=== PATIENT | male | born 1980 | race Two or more races ===

== ENCOUNTER 2020-01-30 14:11 | Inpatient (IN) | payer MEDICAID, OTHER ==
[~2020-01-30] VITALS: Ht 172.7 cm; Wt 65.1 kg
[2020-01-30] MEDS ORDERED: SODIUM CHLORIDE 0.9% 1,000 ML IV ONE ×2 (14:42)
[2020-01-30 15:08] LABS: Basophils # (auto) 0 10 ^3/uL (0-0.2); Basophils % (auto) 0.5 % (0.0-2.0); Eosinophils # (auto) 0 10 ^3/uL (0-0.8); Eosinophils % (auto) 0.7 % (0.0-7.0); Hematocrit 41.9 % (41.0-53.0); Monocytes # (auto) 0.7 10 ^3/uL (0-1.3); Monocytes % (auto) 11.9 % (0.0-12.0); White Blood Cell 6.2 10^3/uL (4.4-10.8)
[2020-01-30 15:09] LABS: Hemoglobin 13.5 g/dL (13.5-17.5); Lymphocytes % (auto) 15.6 % (10.0-50.0); Mean Corpuscular Hemoglobin 25.9 pg (28.0-32.0); Mean Corpuscular Hgb Conc. 32.3 g/dL (32.0-36.0); Mean Corpuscular Volume 80.4 fL (80.0-100.0); Neutrophils # (auto) 4.4 10 ^3/uL (1.6-8.6); Neutrophils % (auto) 71.3 % (37.0-80.0); Nucleated Red Blood Cells % 0.1 %; Platelet Count (auto) 138 10^3/uL (140-450); Red Blood Cells 5.21 10^6/uL (4.5-5.90)
[2020-01-30 15:13] LABS: Red Cell Distribution Width 20.7 % (11.8-14.3)
[2020-01-30 15:30] LABS: Albumin 3.9 g/dL (3.4-5.0); Anion Gap 11 (5-15); Blood Urea Nitrogen 4 mg/dL (7-18); Calcium 9.4 mg/dL (8.5-10.1); Carbon Dioxide 26 mmol/L (21-32); Chloride 95 mmol/L (98-107); Glucose 319 mg/dL (74-106); Lipase 212 U/L (73-393); Potassium 3.2 mmol/L (3.5-5.1); Sodium 132 mmol/L (136-145)
[2020-01-30 15:36] LABS: Alanine Aminotransferase 53 U/L (16-61); Alkaline Phosphatase 159 U/L (45-117); Aspartate Aminotransferase 56 U/L (15-37); BUN/Creatinine Ratio 5.1; Bilirubin, Total 3.5 mg/dL (0.2-1.0); GFR African American 143 mL/min; GFR Non-African American 118 mL/min; Total Protein 8.5 g/dL (6.4-8.2)
[2020-01-30] MEDS ORDERED: PIPERACILLIN-TAZOB 3.375GM 100 ML IV ONE (16:00)
[2020-01-30] MEDS ORDERED: metroNIDAZOLE 500MG/100ML 100 ML IV ONE (16:00)
[2020-01-30 16:20] LABS: Urine Bacteria NONE SEEN /hpf (None Seen); Urine Blood Negative /uL (Negative); Urine Specific Gravity 1.048 (1.001-1.035); Urine WBC <1 /hpf (0 - 3)
[2020-01-30] MEDS ORDERED: IOHEXOL 300 MG/ML 100ML BOTTLE IJ ONE (16:47)
[2020-01-30] MEDS ORDERED: MORPHINE SULF INJ 2 MG/ML SYRINGE 1ML IV PRN (20:15)
[2020-01-30] MEDS ORDERED: NITROGLYCERIN 0.4 MG SL TAB SL PRN (20:15)
[2020-01-30 21:16] VITALS: BP 132/96
--- NOTE | 2020-01-30 21:16 | NUR ---
Telemetry admit from ER FRANKADIEL admitted to Telemetry unit after SBAR received. Patient oriented to José Antonio lindquist RN, unit, room, bed, and unit policies regarding patient care and visiting hours. Patient now on continuous telemetry monitoring, tele box # 35 and telemetry reading on arrival to unit is NSR. Patient placed on bedside oxygen, weighed by bedscale and encouraged to call if they need something. All questions and concerns addressed, patient verbalized understanding.
[2020-01-31] MEDS: MORPHINE SULF INJ 2 MG/ML SYRINGE 1ML IV PRN ×2 (00:55→20:59)
[2020-01-31 05:00] VITALS: BP 126/81
[2020-01-31 07:20] LABS: Basophils # (auto) 0 10 ^3/uL (0-0.2); Hemoglobin 11.9 g/dL (13.5-17.5); INR 1.21 (0.9-1.15); Lymphocytes # (auto) 1.5 10 ^3/uL (0.4-5.4); Lymphocytes % (auto) 28.1 % (10.0-50.0); Monocytes # (auto) 0.8 10 ^3/uL (0-1.3); Neutrophils # (auto) 2.9 10 ^3/uL (1.6-8.6); Nucleated Red Blood Cells % 0.1 %; Partial Thromboplastin Time 27.9 sec (23.64-32.05)
[2020-01-31 07:22] LABS: Albumin 3.3 g/dL (3.4-5.0); Basophils % (auto) 0.4 % (0.0-2.0); Calcium 8.5 mg/dL (8.5-10.1); Eosinophils # (auto) 0.1 10 ^3/uL (0-0.8); Eosinophils % (auto) 2.8 % (0.0-7.0); Magnesium 1.7 mg/dL (1.6-2.6); Mean Corpuscular Hemoglobin 25.5 pg (28.0-32.0); Mean Corpuscular Hgb Conc. 31.2 g/dL (32.0-36.0); Mean Corpuscular Volume 81.6 fL (80.0-100.0); Monocytes % (auto) 14.8 % (0.0-12.0); Neutrophils % (auto) 53.9 % (37.0-80.0); Platelet Count (auto) 107 10^3/uL (140-450); Red Blood Cells 4.66 10^6/uL (4.5-5.90); White Blood Cell 5.3 10^3/uL (4.4-10.8)
[2020-01-31 07:26] LABS: BUN/Creatinine Ratio 6.2; Bilirubin, Total 2.5 mg/dL (0.2-1.0); Total Protein 7.2 g/dL (6.4-8.2)
[2020-01-31 07:35] LABS: Red Cell Distribution Width 20.7 % (11.8-14.3)
--- NOTE | 2020-01-31 08:00 | NUR ---
RECEIVED PATIENT ALERT AND ORIENTED X4, NOT IN DISTRESS, CLEAR LUNG SOUNDS IN BILATERAL UPPER AND LOWER LUNG LOBES, RR=18, SAT 97%, DEEP BREATHING AND COUGHING ENCOURAGED, DEMONSTRATED AND VERBALIZED WELL, DENIED SOB AND CHEST PAIN AT THIS MOMENT, SR R=78 ON TELE MONITOR, ABDOMEN SOFT WITH ACTIVE BS, C/O MID UPPER ABDOMINAL QUADRANT PAIN L=12/09, LAST BM=01/27/20 REPORTED, SKIN INTACT WARM TO TOUCH, RADIAL AND PEDAL PULSES PALPABLE, CAP REFILL <3 SECONDS, RESTING ON BED, DENIED PAIN, HEAD OF BED ELEVATED, BED ON LOW POSITION, RAILS UP X2, CALL LIGHT ON REACH, WILL CONTINUE MONITORING.
--- NOTE | 2020-01-31 08:59 | NUR ---
NO HOME MEDICATION LIST PROVIDED, NOT TAKING ANY MEDICATION AT HOME REPORTED BY THE PATIENT, RESTING ON BED, KEEP NPO ORDERED, WILL CONTINUE MONITORING.
[2020-01-31 09:00] VITALS: BP 132/92
[2020-01-31] MEDS ORDERED: DEXTROSE (50%) 50ML SYRG IV PRN (11:30)
[2020-01-31] MEDS ORDERED: traMADol HCL 50 MG TAB PO PRN (11:30)
[2020-01-31] MEDS ORDERED: FAMOTIDINE (10MG/ML) 2ML VL IV ONE (11:30)
[2020-01-31] MEDS ORDERED: POTASSIUM CHL 20 Meq TABLET PO ONE (11:30)
[2020-01-31] MEDS: ACCU-CHEK COMFORT CURVE STRIP VI SCH ×2 (12:00→18:27)
[2020-01-31] MEDS: InsuLIN REG 1unit/0.01ml Soln (100units/ml) SC SCH ×2 (12:00→18:27)
[2020-01-31 13:00] VITALS: BP 126/90
[2020-01-31] MEDS: SODIUM CHLORIDE 0.9% 1,000 ML IV SCH (15:00)
[2020-01-31 17:00] VITALS: BP 135/92
--- NOTE | 2020-01-31 19:28 | NUR ---
TOLERATED CLEAR LIQUID DIET WELL, RESTING ON BED, NOT IN DISTRESS, REPORT WAS GIVEN TO THE DIE STAMPING PRESS OPERATOR RN.
--- NOTE | 2020-01-31 20:50 | NUR ---
pain c/o right upper abdominal quadrant pain, 8. will administer ordered medication.
--- NOTE | 2020-01-31 20:51 | NUR ---
22g place at left AC, one attempt, pt tolerated well.
[2020-01-31 22:00] VITALS: BP 139/95
[2020-02-01] MEDS: ACCU-CHEK COMFORT CURVE STRIP VI SCH ×3 (00:08→11:38)
[2020-02-01] MEDS: InsuLIN REG 1unit/0.01ml Soln (100units/ml) SC SCH ×3 (00:08→12:45)
[2020-02-01] MEDS: SODIUM CHLORIDE 0.9% 1,000 ML IV SCH ×3 (00:11→12:06)
[2020-02-01 05:00] VITALS: BP 145/89
[2020-02-01 06:35] LABS: Basophils # (auto) 0 10 ^3/uL (0-0.2); Basophils % (auto) 0.8 % (0.0-2.0); Eosinophils # (auto) 0.2 10 ^3/uL (0-0.8); Hemoglobin 12.3 g/dL (13.5-17.5); Lymphocytes # (auto) 1.7 10 ^3/uL (0.4-5.4); Mean Corpuscular Volume 81.4 fL (80.0-100.0); Monocytes # (auto) 0.9 10 ^3/uL (0-1.3); Nucleated Red Blood Cells % 0.1 %; White Blood Cell 5.4 10^3/uL (4.4-10.8)
[2020-02-01 06:37] LABS: Eosinophils % (auto) 3.8 % (0.0-7.0); Hematocrit 38.3 % (41.0-53.0); Lymphocytes % (auto) 31.3 % (10.0-50.0); Mean Corpuscular Hemoglobin 26.1 pg (28.0-32.0); Mean Corpuscular Hgb Conc. 32.1 g/dL (32.0-36.0); Monocytes % (auto) 16.9 % (0.0-12.0); Neutrophils # (auto) 2.5 10 ^3/uL (1.6-8.6); Neutrophils % (auto) 47.2 % (37.0-80.0); Platelet Count (auto) 102 10^3/uL (140-450); Red Cell Distribution Width 20.4 % (11.8-14.3)
--- NOTE | 2020-02-01 07:06 | NUR ---
closing note pt resting in left lateral position with eyes closed. no s/s of pain or discomfort. respirations even and nonlabored on room air. bed in low locked position, call light within reach.
[2020-02-01 07:07] LABS: Albumin 3.3 g/dL (3.4-5.0); BUN/Creatinine Ratio 5.6; Calcium 8.5 mg/dL (8.5-10.1)
[2020-02-01 07:10] LABS: Bilirubin, Total 1.8 mg/dL (0.2-1.0); Total Protein 7.6 g/dL (6.4-8.2)
[2020-02-01 07:40] LABS: Potassium 2.7 mmol/L (3.5-5.1)
--- NOTE | 2020-02-01 07:40 | NUR ---
RE: Critical lab result Received critical potassium result [id number]. Notified Geovani Bedolla.P.. Order received and read back to verify.
[2020-02-01] MEDS ORDERED: POTASSIUM CHL 20 Meq TABLET PO ONE ×2 (08:00→10:45)
--- NOTE | 2020-02-01 08:00 | NUR ---
Morning note patient resting in bed with even and unlabored respirations, no distress noted. Instructed patient on POC, fall precautions and to call for assistance as needed. Patient verbalized understanding. Fall precautions in place with call light within reach.
[2020-02-01 09:24] VITALS: BP 128/81
[2020-02-01] MEDS ORDERED: FAMOTIDINE (10MG/ML) 2ML VL IV SCH (10:00)
--- NOTE | 2020-02-01 10:33 | NUR ---
was at bedside - Dr. Rosado This RN was at bedside. MD to place orders.
[2020-02-01] MEDS ORDERED: metFORMIN HYDROCHLORIDE 500 MG TAB PO ONE (10:45)
[2020-02-01 12:44] VITALS: BP 138/86
[2020-02-01 14:29] LABS: Calcium 9.2 mg/dL (8.5-10.1); Potassium 3.6 mmol/L (3.5-5.1)
[2020-02-01 14:31] LABS: BUN/Creatinine Ratio 2.8
--- NOTE | 2020-02-01 16:17 | NUR ---
Patient tolerated full liquid diet. Patient denies N/V, or abdominal pain. Potassium level WNL. Dr. Rosado verbally notified. verbalized understanding.
[2020-02-01 16:27] VITALS: BP 144/86
--- NOTE | 2020-02-01 17:00 | NUR ---
Discharge Discharge education and paperwork provided to the patient per MD order. patient verbalized understanding. Diabetes education provided to the patient. Patient verbalized understanding. IV remove with aseptic technique, catheter intact. Dressing applied. patient tolerated well; no trauma to site. Telemonitor removed and returned to telemonitor tech. Patient reports having all personal belongings. Patient reports his private vehicle in the ER parking lot. Respirations even and unlabored, no distress noted.
--- NOTE | 2020-02-01 17:09 | NUR ---
Patient ambulated off unit with a steady gait Patient accompanied by staff member. Respirations even and unlabored, no distress noted. Patient reports having all personal belongings. Patient instructed to knot picker cloth prescriptions from [facility]. Patient verbalized understanding.
[2020-02-01] MEDS ORDERED: metFORMIN HYDROCHLORIDE 500 MG TAB PO SCH (18:00)
== END 2020-02-01 17:09 | disposition home or self-care (01) | DRG 282 ==
LOC: ER 14:11 → TELE 14:12 → TELE-CENTR 21:16
PROVIDERS: ADMIT Hospitalist; ATTEND Internal Medicine
DX: K85.20 Alcohol induced acute pancreatitis without necrosis or infection (principal); D68.4 Acquired coagulation factor deficiency; E44.0 Moderate protein-calorie malnutrition; K70.10 Alcoholic hepatitis without ascites; E11.65 Type 2 diabetes mellitus with hyperglycemia; K72.90 Hepatic failure, unspecified without coma; F10.239 Alcohol dependence with withdrawal, unspecified; E86.0 Dehydration; K52.9 Noninfective gastroenteritis and colitis, unspecified; K29.20 Alcoholic gastritis without bleeding; E87.6 Hypokalemia; F17.200 Nicotine dependence, unspecified, uncomplicated; K76.0 Fatty (change of) liver, not elsewhere classified; R81 Glycosuria; R82.4 Acetonuria; Z71.41 Alcohol abuse counseling and surveillance of alcoholic; K86.0 Alcohol-induced chronic pancreatitis
CPT/HCPCS: 36415; 71045; 74176; 74177; 76705; 80048; 80053; 81001; 82962; 83036; 83605; 83690; 83735; 84100; 84484; 85025; 85610; 85730; 87040; 87081; G0378; J1815; J2543; J3490

== ENCOUNTER 2020-02-24 09:26 | Inpatient (IN) | payer MEDICAID ==
[~2020-02-24] VITALS: Ht 172.7 cm; Wt 85.7 kg
[2020-02-24] MEDS ORDERED: SODIUM CHLORIDE 0.9% 1,000 ML IV ONE ×2 (10:40)
[2020-02-24] MEDS ORDERED: ONDANSETRON HCL 4 MG/2 ML VIAL IV ONE (10:45)
[2020-02-24] MEDS ORDERED: MORPHINE SULFATE 4 MG/ML SYR/VIAL IV ONE (10:45)
[2020-02-24 11:10] LABS: Urine Bacteria NONE SEEN /hpf (None Seen); Urine Blood Negative /uL (Negative); Urine Mucus FEW (None Seen); Urine Specific Gravity 1.028 (1.001-1.035); Urine WBC 3 /hpf (0 - 3)
[2020-02-24 11:22] LABS: Potassium 4.8 mmol/L (3.5-5.1)
[2020-02-24 11:24] LABS: Amphetamine Screen, Urine NEGATIVE (NEGATIVE); Barbiturate Scree,Urine NEGATIVE (NEGATIVE); Benzodiazephine Screen, Urine NEGATIVE (NEGATIVE); Cannabinoid Screen, Urine NEGATIVE (NEGATIVE); Cocaine Screen, Urine NEGATIVE (NEGATIVE); Opiate Scree,Urine NEGATIVE (NEGATIVE); Phencyclidine Screen, Urine NEGATIVE (NEGATIVE)
[2020-02-24 11:30] LABS: Albumin 4.1 g/dL (3.4-5.0); Bilirubin, Total 3.9 mg/dL (0.2-1.0); Calcium 9.9 mg/dL (8.5-10.1)
[2020-02-24 11:41] LABS: Eosinophils # (auto) 0 10 ^3/uL (0-0.8)
[2020-02-24 11:43] LABS: Basophils # (auto) 0 10 ^3/uL (0-0.2); Basophils % (auto) 0.2 % (0.0-2.0); Hemoglobin 15.4 g/dL (13.5-17.5); Lymphocytes # (auto) 0.6 10 ^3/uL (0.4-5.4); Lymphocytes % (auto) 5.5 % (10.0-50.0); Mean Corpuscular Hemoglobin 25.7 pg (28.0-32.0); Mean Corpuscular Volume 80.1 fL (80.0-100.0); Monocytes % (auto) 10.1 % (0.0-12.0); Neutrophils # (auto) 8.7 10 ^3/uL (1.6-8.6); Neutrophils % (auto) 84.2 % (37.0-80.0); Platelet Count (auto) 188 10^3/uL (140-450); Red Cell Distribution Width 19.4 % (11.8-14.3); White Blood Cell 10.3 10^3/uL (4.4-10.8)
[2020-02-24 11:56] LABS: INR 1.16 (0.9-1.15); Partial Thromboplastin Time 23.9 sec (23.64-32.05)
[2020-02-24] MEDS ORDERED: PIPERACILLIN-TAZOB 3.375GM 100 ML IV ONE (12:30)
[2020-02-24] MEDS ORDERED: PROMETHAZINE HCL 25 MG/ML 1ML IV ONE (13:30)
[2020-02-24] MEDS ORDERED: NITROGLYCERIN 0.4 MG SL TAB SL PRN (15:00)
[2020-02-24] MEDS ORDERED: cefTRIAXone 1GM/50ML D5W 50 ML IV ONE (15:00)
[2020-02-24] MEDS ORDERED: PROMETHAZINE HCL 25 MG/ML 1ML IV PRN (15:00)
[2020-02-24] MEDS ORDERED: MORPHINE SULF INJ 2 MG/ML SYRINGE 1ML IV PRN ×3 (15:00)
[2020-02-24] MEDS ORDERED: DEXTROSE (50%) 50ML SYRG IV PRN (15:00)
[2020-02-24 15:09] LABS: Lactic Acid w/Reflex 3.3 mmol/L (0.4-2.0)
[2020-02-24] MEDS: SODIUM CHLORIDE 0.9% 1,000 ML IV SCH ×2 (16:12→21:40)
--- NOTE | 2020-02-24 16:58 | NUR ---
MS admit from ER ADIEL MARIE admitted to tele/MS after SBAR received. Patient oriented to ALANA WHITLEY, RN primary RN, TELE unit, room 296, bed A, and unit policies regarding patient care and visiting hours. Patient weighed by bedscale and encouraged to call if they need something. All questions and concerns addressed, patient verbalized understanding.
[2020-02-24 17:11] VITALS: BP 150/100
[2020-02-24] MEDS ORDERED: METF-370 PO (17:26)
--- NOTE | 2020-02-24 17:29 | NUR ---
PAGE MADE TO DR. YUAN REGARDING BP. ORDER RECEIVED FOR CHANGE IN PAIN MANAGEMENT MEDICATION.
[2020-02-24] MEDS: ACCU-CHEK COMFORT CURVE STRIP VI SCH (17:46)
[2020-02-24] MEDS: InsuLIN REG 1unit/0.01ml Soln (100units/ml) SC SCH (17:57)
[2020-02-24] MEDS: HYDROmorphone HCL 2 MG/ML VL IV PRN ×2 (18:09→23:48)
--- NOTE | 2020-02-24 18:54 | NUR ---
CARE ENDORSED TO NOC RN.
--- NOTE | 2020-02-24 19:00 | NUR ---
Opening Shift Note Assumed care of patient, awake and alert; c/o no relief from pain med prev. received. States understands that pain med not due until 2200, but pain 01/09. Pt grimacing only s/sx of pain. Insructed on POC and to call for assist PRN and RN will continue to monitor for changes. Bed in low position with HOB in semi-Mayberry's. Nurse call light within pt's reach.
[2020-02-24 22:00] VITALS: BP 144/93
[2020-02-24] MEDS: FAMOTIDINE (10MG/ML) 2ML VL IV SCH (23:39)
[2020-02-24] MEDS: metroNIDAZOLE 500MG/100ML 100 ML IV SCH (23:50)
[2020-02-25] MEDS: ACCU-CHEK COMFORT CURVE STRIP VI SCH ×5 (00:13→23:29)
[2020-02-25] MEDS: InsuLIN REG 1unit/0.01ml Soln (100units/ml) SC SCH ×5 (00:15→23:28)
--- NOTE | 2020-02-25 01:10 | NUR ---
Paged hospitalist 2/2 patient's unrelieved pain and PIV order for 150ml/hr with bp now down to 140s systolic. Hospitalist called to cardiac assist before he could answer.
--- NOTE | 2020-02-25 02:18 | NUR ---
PIV leaking blood and IV fluid; dc'd. This RN attempted x2 to start PIV w/o success. KOKO Alvarez, started PIV with 20g to LFA. Pt negro. well. Will give hydromorphone as pain has not been relieved poss due to PIV leaking into tissue.
[2020-02-25] MEDS: HYDROmorphone HCL 2 MG/ML VL IV PRN ×6 (02:33→23:23)
--- NOTE | 2020-02-25 02:52 | NUR ---
Pt states "pain is going down."
[2020-02-25] MEDS: SODIUM CHLORIDE 0.9% 1,000 ML IV SCH ×3 (04:20→17:34)
[2020-02-25 05:00] VITALS: BP 142/92
[2020-02-25] MEDS: metroNIDAZOLE 500MG/100ML 100 ML IV SCH ×3 (06:22→21:06)
[2020-02-25 06:38] LABS: Basophils # (auto) 0 10 ^3/uL (0-0.2); Eosinophils # (auto) 0 10 ^3/uL (0-0.8); Eosinophils % (auto) 0.1 % (0.0-7.0); Hemoglobin 13.9 g/dL (13.5-17.5); Monocytes # (auto) 1.9 10 ^3/uL (0-1.3); Monocytes % (auto) 15.3 % (0.0-12.0); Nucleated Red Blood Cells % 0.1 %
[2020-02-25 06:42] LABS: Basophils % (auto) 0.3 % (0.0-2.0); Hematocrit 43.5 % (41.0-53.0); Lymphocytes # (auto) 1.1 10 ^3/uL (0.4-5.4); Lymphocytes % (auto) 8.7 % (10.0-50.0); Mean Corpuscular Hemoglobin 25.8 pg (28.0-32.0); Mean Corpuscular Volume 80.6 fL (80.0-100.0); Neutrophils # (auto) 9.6 10 ^3/uL (1.6-8.6); Neutrophils % (auto) 75.6 % (37.0-80.0); Platelet Count (auto) 149 10^3/uL (140-450); Red Blood Cells 5.39 10^6/uL (4.5-5.90); Red Cell Distribution Width 19.4 % (11.8-14.3); White Blood Cell 12.7 10^3/uL (4.4-10.8)
[2020-02-25 06:45] LABS: Potassium 3.6 mmol/L (3.5-5.1)
[2020-02-25 07:02] LABS: Albumin 3.3 g/dL (3.4-5.0); BUN/Creatinine Ratio 15.4; Bilirubin, Total 3.2 mg/dL (0.2-1.0); Total Protein 7.7 g/dL (6.4-8.2)
[2020-02-25 09:00] VITALS: BP 128/79
[2020-02-25] MEDS: FAMOTIDINE (10MG/ML) 2ML VL IV SCH ×2 (09:43→20:44)
[2020-02-25] MEDS: cefTRIAXone 1GM/50ML D5W 50 ML IV SCH (09:43)
[2020-02-25 13:00] VITALS: BP 121/78
[2020-02-25 17:00] VITALS: BP 141/82
[2020-02-25 22:00] VITALS: BP 131/82
[2020-02-26] MEDS: SODIUM CHLORIDE 0.9% 1,000 ML IV SCH ×3 (00:20→11:49)
[2020-02-26] MEDS: HYDROmorphone HCL 2 MG/ML VL IV PRN ×3 (03:18→11:49)
[2020-02-26] MEDS: metroNIDAZOLE 500MG/100ML 100 ML IV SCH ×2 (05:37→13:23)
[2020-02-26] MEDS: ACCU-CHEK COMFORT CURVE STRIP VI SCH ×2 (05:40→11:48)
[2020-02-26] MEDS: InsuLIN REG 1unit/0.01ml Soln (100units/ml) SC SCH ×2 (05:43→11:48)
[2020-02-26 06:20] VITALS: BP 135/76
[2020-02-26 07:10] LABS: Basophils # (auto) 0 10 ^3/uL (0-0.2); Monocytes # (auto) 1.2 10 ^3/uL (0-1.3); Monocytes % (auto) 10.1 % (0.0-12.0)
[2020-02-26 07:12] LABS: Basophils % (auto) 0.4 % (0.0-2.0); Eosinophils # (auto) 0 10 ^3/uL (0-0.8); Eosinophils % (auto) 0.4 % (0.0-7.0); Hematocrit 41.2 % (41.0-53.0); Lymphocytes # (auto) 1.5 10 ^3/uL (0.4-5.4); Lymphocytes % (auto) 12.5 % (10.0-50.0); Mean Corpuscular Hemoglobin 25.9 pg (28.0-32.0); Mean Corpuscular Hgb Conc. 31.7 g/dL (32.0-36.0); Mean Corpuscular Volume 81.8 fL (80.0-100.0); Neutrophils # (auto) 8.9 10 ^3/uL (1.6-8.6); Neutrophils % (auto) 76.6 % (37.0-80.0); Nucleated Red Blood Cells % 0.1 %; Platelet Count (auto) 137 10^3/uL (140-450); Red Blood Cells 5.03 10^6/uL (4.5-5.90); White Blood Cell 11.6 10^3/uL (4.4-10.8)
[2020-02-26 07:35] LABS: Potassium 3.5 mmol/L (3.5-5.1)
[2020-02-26 07:42] LABS: BUN/Creatinine Ratio 11.3; Bilirubin, Total 2.7 mg/dL (0.2-1.0); Calcium 8.8 mg/dL (8.5-10.1); Total Protein 7.5 g/dL (6.4-8.2)
--- NOTE | 2020-02-26 07:54 | NUR ---
Opening Shift Note Assumed care of patient, awake and alert. No S/S of distress/SOB or pain. Insructed on POC and to callfor assist PRN, will continue to monitor for changes Q1hr and PRN. PT reports the want to go home because he has to go to court tomorrow
--- NOTE | 2020-02-26 07:55 | NUR ---
nuc med called will be picking up patient for hidda scan
[2020-02-26 09:00] VITALS: BP 129/73
[2020-02-26] MEDS: cefTRIAXone 1GM/50ML D5W 50 ML IV SCH (09:00)
[2020-02-26] MEDS: FAMOTIDINE (10MG/ML) 2ML VL IV SCH (09:35)
--- NOTE | 2020-02-26 09:36 | NUR ---
pt back from nuc med
[2020-02-26 13:00] VITALS: BP 126/73
--- NOTE | 2020-02-26 15:35 | NUR ---
Nutrition Assessment Notes please see attached link for complete assessment [employer] needs BW 85k-5kcals (23-25 kcal/kgBW), Est Protein needs: 85-93 gms/day (1.0-1.1 gm/kgBW). Will continue to monitor and reassess prn. Addendum: 02/26/20 at [address] Amended: Links added.
--- NOTE | 2020-02-26 16:33 | NUR ---
pt discharged home ambulatory tele box off iv removed tele sent to [facility] center discharge instructions reviewed
[2020-02-26 17:10] LABS: Hepatitis A Ab IgM Negative
[2020-02-26 17:11] LABS: Hepatitis B Core IgM Negative; Hepatitis B Surface Antigen Negative (Negative)
[2020-02-26 17:12] LABS: Hepatitis C Antibody Negative (Negative)
== END 2020-02-26 16:30 | disposition home or self-care (01) | DRG 720 ==
LOC: ER 09:26 → TELE 09:27 → TELE-WESTW 16:57
PROVIDERS: ADMIT Internal Medicine; ATTEND Internal Medicine
DX: A41.9 Sepsis, unspecified organism (principal); K85.90 Acute pancreatitis without necrosis or infection, unspecified; E87.1 Hypo-osmolality and hyponatremia; D68.9 Coagulation defect, unspecified; K83.8 Other specified diseases of biliary tract; K70.9 Alcoholic liver disease, unspecified; E66.9 Obesity, unspecified; E11.9 Type 2 diabetes mellitus without complications; K29.70 Gastritis, unspecified, without bleeding; E86.0 Dehydration; K76.0 Fatty (change of) liver, not elsewhere classified; Z68.28 Body mass index [BMI] 28.0-28.9, adult; Z83.3 Family history of diabetes mellitus; Z79.84 Long term (current) use of oral hypoglycemic drugs
CPT/HCPCS: 36415; 71046; 74176; 76700; 76705; 78226; 80053; 80074; 80307; 81001; 82140; 82150; 82962; 83036; 83605; 83690; 84443; 84484; 85025; 85610; 85730; 87040; 87086; 96365; 96367; 96375; 99291; G0378; J0696; J1815; J2405; J2543; J3490

== ENCOUNTER 2021-06-03 23:02 | Emergency (ER) | payer MEDICAID, OTHER ==
[~2021-06-03] VITALS: Ht 172.7 cm; Wt 66.2 kg
[2021-06-03 23:02] VITALS: BP 125/96
[~2021-06-03 23:02] MED LIST: METF-370 PO
[2021-06-04] LABS: Basophils # (auto) 0.1 10 ^3/uL (0-0.2); Basophils % (auto) 2.2 % (0.0-2.0); Eosinophils # (auto) 0 10 ^3/uL (0-0.8); Eosinophils % (auto) 0.8 % (0.0-7.0); Hematocrit 44.5 % (41.0-53.0); Hemoglobin 14.8 g/dL (13.5-17.5); Lymphocytes # (auto) 1.6 10 ^3/uL (0.4-5.4); Lymphocytes % (auto) 42.6 % (10.0-50.0); Mean Corpuscular Hemoglobin 32.3 pg (28.0-32.0); Mean Corpuscular Hgb Conc. 33.2 g/dL (32.0-36.0); Mean Corpuscular Volume 97.3 fL (80.0-100.0); Monocytes # (auto) 0.4 10 ^3/uL (0-1.3); Neutrophils # (auto) 1.7 10 ^3/uL (1.6-8.6); Neutrophils % (auto) 44.4 % (37.0-80.0); Nucleated Red Blood Cells % 0.1 %; Red Blood Cells 4.57 10^6/uL (4.5-5.90); Red Cell Distribution Width 13.9 % (11.8-14.3); White Blood Cell 3.7 10^3/uL (4.4-10.8)
[2021-06-04 00:19] LABS: Potassium 3.9 mmol/L (3.5-5.1)
[2021-06-04 00:22] LABS: Albumin 3.9 g/dL (3.4-5.0); BUN/Creatinine Ratio 3.1; Calcium 8.8 mg/dL (8.5-10.1); Magnesium 2.3 mg/dL (1.6-2.6)
[2021-06-04 00:29] LABS: Total Protein 8.6 g/dL (6.4-8.2)
== END 2021-06-04 02:24 | disposition left against medical advice (07) ==
LOC: EDUNIT# 23:02 → ER 23:02
DX: R07.89 Other chest pain (principal); R20.2 Paresthesia of skin; Z53.21 Procedure and treatment not carried out due to patient leaving prior to being seen by health care provider
CPT/HCPCS: 36415; 71045; 80053; 83735; 84484; 85025; 93005